=== PATIENT | male | born 1955 | race Two or more races ===

== ENCOUNTER 2020-05-16 03:16 | Emergency (ER) | payer OTHER ==
[~2020-05-16] VITALS: Ht 172.7 cm; Wt 74.4 kg
--- NOTE | 2020-05-16 05:13 | NUR ---
PT HAS REMAINED SLEEPING ON [employer], CONNECTED TO BP AND O2 MONITORS. CALL LIGHT IN REACH.
[2020-05-16 06:21] VITALS: BP 128/73
== END 2020-05-16 06:23 | disposition home or self-care (01) ==
LOC: ED 03:58
DX: U07.1 COVID-19 (principal); R06.00 Dyspnea, unspecified; R07.89 Other chest pain
CPT/HCPCS: 71045; 93005; 99283

== ENCOUNTER 2020-05-18 02:33 | Inpatient (IN) | payer SELFPAY ==
[~2020-05-18] VITALS: Ht 172.7 cm; Wt 73.4 kg
[2020-05-18 03:14] LABS: MEAN CORPUSCULAR HEMOGLOBIN 29.9 pg (27.5-34.5); MEAN CORPUSCULAR HGB CONC 33.7 g/dL (33.2-36.2); PLATELET COUNT 222 x10^3/uL (130-400); RED BLOOD COUNT 5.04 x10^6/uL (4.38-5.82); RED CELL DISTRIBUTION WIDTH 14.2 % (9.4-14.8)
[2020-05-18 03:19] LABS: ALANINE AMINOTRANSFERASE 23 U/L (12-78); ALBUMIN 2.9 g/dL (3.4-5.0); ANION GAP 6 mmol/L (5-15); CALCIUM 8.3 mg/dL (8.5-10.1); CHLORIDE 101 mmol/L (98-107)
[2020-05-18 03:23] LABS: ALKALINE PHOSPHATASE 63 U/L (45-117); BILIRUBIN,TOTAL 0.5 mg/dL (0.2-1.0); TOTAL PROTEIN 7.2 g/dL (6.4-8.2); TROPONIN I < 0.015 ng/mL (0.000-0.045)
[2020-05-18 03:33] LABS: BASOPHILS % (AUTO) 0 % (0-1); EOSINOPHILS % (AUTO) 0 % (1-7); LYMPHOCYTES % (AUTO) 9 % (22-44); MONOCYTES % (AUTO) 9 % (2-9); NEUTROPHILS % (AUTO) 81 % (42-75)
[2020-05-18 03:34] LABS: MD NO
--- NOTE | 2020-05-18 03:36 | NUR ---
Pt comes in with complaints of cough and increase SOB. Patient was recently seen here and was dx with MALIK 9 days ago. Patient states that the cough keeps him up at night and he is worried that his will get it. Patient placed on ECG/ O2 monitor, VSS. IV established and all labs drawn. Patient noted to be resting at this time and oxygen is 100% on RA. Call light within reach and will con't to montior
[2020-05-18] MEDS ORDERED: CEFTRIAXONE PMX 1GM/50ML 50 ML IVPB ONE (04:00)
[2020-05-18] MEDS ORDERED: AZITHROMYCIN 500 MG in SODIUM CHLORIDE 0.9% 250 ML IV ONE (04:00)
[2020-05-18] MEDS ORDERED: SODIUM CHLORIDE 0.9% 1,000 ML IV ONE (04:00)
[2020-05-18] MEDS ORDERED: CEFTRIAXONE PMX 1GM/50ML 50 ML ONE (04:06)
[2020-05-18] MEDS ORDERED: DOCUSATE 100 MG CAPSULE PO PRN (05:00)
[2020-05-18] MEDS ORDERED: ACETAMINOPHEN 325 MG TABLET PO PRN (05:00)
[2020-05-18] MEDS ORDERED: morphine SULFATE 10 MG/ML, 1ML IVPush PRN (05:00)
[2020-05-18] MEDS ORDERED: METHOCARBAMOL 500 MG TABLET PO PRN (05:00)
[2020-05-18] MEDS ORDERED: HYDROcodone/APAP 5/325 TABLET PO PRN (05:00)
[2020-05-18] MEDS ORDERED: ZOLPIDEM 5MG TABLET PO PRN (05:00)
[2020-05-18] MEDS ORDERED: ONDANSETRON 2MG/ML, 2ML IVPush PRN (05:00)
[2020-05-18] MEDS ORDERED: DEXAMETHASONE 1 MG TABLET PO SCH (05:00)
[2020-05-18] MEDS ORDERED: ENALAPRILAT 1.25 MG/ML, 2ML IVPush PRN (05:00)
[2020-05-18] MEDS ORDERED: ENOXAPARIN 40 MG/0.4 ML ONE (06:04)
[2020-05-18] MEDS ORDERED: BENZONATATE 100 MG CAPSULE ONE ×4 (06:04→21:26)
[2020-05-18] MEDS ORDERED: DEXAMETHASONE 4 MG TABLET ONE ×2 (06:05→08:28)
[2020-05-18] MEDS: ENOXAPARIN 40 MG/0.4 ML SQ SCH (06:10)
[2020-05-18] MEDS: BENZONATATE 100 MG CAPSULE PO SCH ×4 (06:11→21:00)
--- NOTE | 2020-05-18 06:23 | NUR ---
Customer Experience Associate noted that patient was placed on oxygen at some point. After speaking with the hospitalist he ask if we could wean patient down. The patient is currently on 1L NC at 97%. Patient offers no complaints of SOB or difficulty breathing at this time. Patient resting comfortably at this time. Call light within reach, side rails up.
--- NOTE | 2020-05-18 07:20 | NUR ---
RECEIVED REPORT FROM ELHAM OCAMPO RN. PT SLEEPING ON [facility]. CARTER. VSS. HOUSEKEEPING NOTIFIED OF NEED FOR HOSPITAL BED FOR PT.
--- NOTE | 2020-05-18 07:24 | NUR ---
YELLOW SLIP SENT TO PHARMACY FOR MORNING MEDS.
[2020-05-18] MEDS ORDERED: DEXAMETHASONE 4 MG TABLET PO SCH (07:30)
--- NOTE | 2020-05-18 08:24 | NUR ---
PT MOVED FROM [facility] TO [facility] BED. CARTER. PT CURRENTLY ON RA SATING 96%
[2020-05-18] MEDS ORDERED: FAMOTIDINE 20 MG TABLET ONE ×2 (08:28→21:25)
[2020-05-18] MEDS ORDERED: INSULIN SINGLE DOSE, ER ONE (08:29)
[2020-05-18] MEDS: FAMOTIDINE 20 MG TABLET PO SCH ×2 (08:38→21:00)
[2020-05-18] MEDS: INSULIN REGULAR 100 UNITS/ML, 3ML VIAL SQ-INSULIN SCH ×4 (08:38→21:30)
--- NOTE | 2020-05-18 08:38 | NUR ---
PT MEDICATED PER SEP. PROVIDED W/ BREAKFAST TRAY. NADN. MONITORS REMAIN IN PLACE.
--- NOTE | 2020-05-18 09:08 | NUR ---
PT RESTING IN BED. NADN. VSS.
[2020-05-18] MEDS: DEXAMETHASONE 4 MG TABLET PO SCH (09:32)
--- NOTE | 2020-05-18 11:00 | NUR ---
REPORT FROM TAPAN HAWKINS
--- NOTE | 2020-05-18 11:04 | NUR ---
REPORT GIVEN TO MILLER HERNANDEZ RN. ALL QUESTIONS ANSWERED.
[2020-05-18] MEDS ORDERED: INSULIN LISPRO SINGLE DOSE, ER SQ-INSULIN ONE (11:29)
--- NOTE | 2020-05-18 11:43 | NUR ---
PT FOUND WALKING IN HALLS, LOOKING FOR RESTROOM WITH MASK OFF AND IS COUGHING IN HALLS, EXPLAINED TO PT ISO PRECAUTIONS, AND HOW HE IS TO STAY IN RM. PT GIVEN URINAL.
--- NOTE | 2020-05-18 13:34 | NUR ---
BREAK RN:BEDSIDE REPORT RECEIVED FROM PRIMARY RN.
[2020-05-18] MEDS ORDERED: GUAIFENESIN/DM 200-20MG, 10ML UDC ONE (13:59)
[2020-05-18] MEDS: GUAIFENESIN/DM 200-20MG, 10ML UDC PO PRN (14:04)
--- NOTE | 2020-05-18 16:44 | NUR ---
PRE-MEAL FSBS 366, TREATED WITH 10 UNITS (VERIFIED BY MARY HAWKINS). DINNER AT BEDSIDE
--- NOTE | 2020-05-18 17:10 | NUR ---
PT PROVIDED WITH MEAL TRAY. NO OTHER NEEDS AT THIS TIME
--- NOTE | 2020-05-18 18:53 | NUR ---
REPORT FROM MARY HAWKINS. PT RESTING VSS. PT HAS NO NEEDS AT THIS TIME. CALL LIGHT IN REACH
[2020-05-18] MEDS ORDERED: GLIP10TA13 PO (20:11)
--- NOTE | 2020-05-18 20:12 | NUR ---
med rec complete. Report to floor. room not clean yet. Pt updated on POC. Pt has no needs at this time. call light in reach
--- NOTE | 2020-05-18 20:18 | NUR ---
PT HAD NO DIET ORDER IN ORDERS. 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
--- NOTE | 2020-05-18 21:42 | NUR ---
PT HR LOWERED TO 47 WHILE SLEEPING. ADMITTING MD AWARE NO CHANGE IN ORDERS
[2020-05-18 22:31] VITALS: BP 119/69
[2020-05-19 01:40] VITALS: BP 126/72
[2020-05-19] MEDS: AZITHROMYCIN 500 MG TABLET PO SCH ×2 (04:10→08:25)
[2020-05-19] MEDS: CEFTRIAXONE PMX 1GM/50ML 50 ML IV SCH (04:10)
[2020-05-19 06:05] LABS: BASOPHILS % (AUTO) 0 % (0-1); EOSINOPHILS % (AUTO) 0 % (1-7); LYMPHOCYTES % (AUTO) 11 % (22-44); MEAN CORPUSCULAR HEMOGLOBIN 29.6 pg (27.5-34.5); MEAN CORPUSCULAR HGB CONC 33.3 g/dL (33.2-36.2); MEAN PLATELET VOLUME 10.3 fL (7.4-10.4); MONOCYTES % (AUTO) 10 % (2-9); NEUTROPHILS % (AUTO) 79 % (42-75); PLATELET COUNT 242 x10^3/uL (130-400); RED BLOOD COUNT 4.79 x10^6/uL (4.38-5.82); RED CELL DISTRIBUTION WIDTH 13.9 % (9.4-14.8)
[2020-05-19 06:19] LABS: CHLORIDE 105 mmol/L (98-107)
[2020-05-19 06:29] LABS: ANION GAP 10 mmol/L (5-15); CALCIUM 8.4 mg/dL (8.5-10.1); CREATININE 0.88 mg/dL (0.7-1.3)
[2020-05-19 06:45] VITALS: BP 122/70
[2020-05-19] MEDS: INSULIN REGULAR 100 UNITS/ML, 3ML VIAL SQ-INSULIN SCH ×4 (07:00→20:42)
[2020-05-19 07:47] LABS: MD SCAN
[2020-05-19] MEDS: BENZONATATE 100 MG CAPSULE PO SCH ×3 (08:25→20:41)
[2020-05-19] MEDS: FAMOTIDINE 20 MG TABLET PO SCH ×2 (08:25→20:42)
[2020-05-19] MEDS: DEXAMETHASONE 4 MG TABLET PO SCH (08:25)
[2020-05-19] MEDS: ENOXAPARIN 40 MG/0.4 ML SQ SCH (08:27)
[2020-05-19 13:28] VITALS: BP 116/68
[2020-05-19] MEDS: ASCORBIC ACID 500 MG TABLET PO SCH (16:59)
[2020-05-19 20:09] VITALS: BP 135/73
[2020-05-20 02:34] VITALS: BP 135/80
[2020-05-20] MEDS: CEFTRIAXONE PMX 1GM/50ML 50 ML IV SCH (04:05)
[2020-05-20] MEDS: GUAIFENESIN/DM 200-20MG, 10ML UDC PO PRN (04:06)
[2020-05-20 05:35] LABS: HCT (SEDRATE) 43.9 % (39.2-51.8)
[2020-05-20 05:50] LABS: ALBUMIN 2.3 g/dL (3.4-5.0); ANION GAP 6 mmol/L (5-15); CALCIUM 8.1 mg/dL (8.5-10.1); CHLORIDE 109 mmol/L (98-107)
[2020-05-20 05:54] LABS: D-DIMER (DIC) 0.72 ug/mlFEU (0.00-0.52); PROTIME 11.1 Seconds (9.6-11.5)
[2020-05-20 05:59] LABS: ALANINE AMINOTRANSFERASE 28 U/L (12-78); ALKALINE PHOSPHATASE 58 U/L (45-117); BILIRUBIN,TOTAL 0.4 mg/dL (0.2-1.0); C-REACTIVE PROTEIN, QUANT 2.46 mg/dL (0.02-0.49); CREATININE 0.83 mg/dL (0.7-1.3); TOTAL PROTEIN 6.1 g/dL (6.4-8.2)
[2020-05-20 06:46] VITALS: BP 134/79
[2020-05-20] MEDS: ASCORBIC ACID 500 MG TABLET PO SCH ×2 (08:18→17:01)
[2020-05-20] MEDS: BENZONATATE 100 MG CAPSULE PO SCH ×3 (08:18→20:26)
[2020-05-20] MEDS: FAMOTIDINE 20 MG TABLET PO SCH ×2 (08:19→20:26)
[2020-05-20] MEDS: AZITHROMYCIN 500 MG TABLET PO SCH (08:19)
[2020-05-20] MEDS: DEXAMETHASONE 4 MG TABLET PO SCH (08:19)
[2020-05-20] MEDS: ENOXAPARIN 40 MG/0.4 ML SQ SCH (08:19)
[2020-05-20] MEDS: ZINC SULFATE 220 MG CAPSULE PO SCH (08:20)
[2020-05-20] MEDS ORDERED: POTASSIUM CHLORIDE 20 MEQ TAB.ER.PRT PO ONE (08:30)
[2020-05-20] MEDS: INSULIN REGULAR 100 UNITS/ML, 3ML VIAL SQ-INSULIN SCH ×2 (08:32→12:18)
[2020-05-20 13:39] VITALS: BP 131/81
[2020-05-20] MEDS: INSULIN LISPRO 100 UNITS/ML, PEN SQ-INSULIN SCH ×2 (17:01→20:32)
[2020-05-20 19:41] VITALS: BP 130/73
[2020-05-21 01:31] VITALS: BP 136/79
[2020-05-21] MEDS: CEFTRIAXONE PMX 1GM/50ML 50 ML IV SCH (04:06)
[2020-05-21 06:23] VITALS: BP 150/80
[2020-05-21] MEDS: ASCORBIC ACID 500 MG TABLET PO SCH (07:57)
[2020-05-21] MEDS: INSULIN LISPRO 100 UNITS/ML, PEN SQ-INSULIN SCH ×2 (07:57→12:14)
[2020-05-21] MEDS: ENOXAPARIN 40 MG/0.4 ML SQ SCH (07:57)
[2020-05-21] MEDS: DEXAMETHASONE 4 MG TABLET PO SCH (07:58)
[2020-05-21] MEDS: BENZONATATE 100 MG CAPSULE PO SCH (07:58)
[2020-05-21] MEDS: FAMOTIDINE 20 MG TABLET PO SCH (07:58)
[2020-05-21] MEDS: AZITHROMYCIN 500 MG TABLET PO SCH (07:59)
[2020-05-21] MEDS: ZINC SULFATE 220 MG CAPSULE PO SCH (07:59)
[2020-05-21 12:00] VITALS: BP 127/75
[2020-05-21] MEDS ORDERED: CEFD300C37 PO (13:19)
[2020-05-21] MEDS ORDERED: DEXA4TAB PO (13:19)
[2020-05-21] MEDS ORDERED: ZINC220C7 PO (13:19)
[2020-05-21] MEDS ORDERED: ASCO500T9 PO (13:19)
[2020-05-21] MEDS ORDERED: AZIT500T PO (13:19)
== END 2020-05-21 15:07 | disposition home or self-care (01) | DRG 177 ==
LOC: ED 03:07 → EDIP 04:09 → 4EST 22:20
PROVIDERS: ADMIT Internal Medicine; ATTEND Internal Medicine
DX: U07.1 COVID-19 (principal); J12.89 Other viral pneumonia; J96.01 Acute respiratory failure with hypoxia; E87.1 Hypo-osmolality and hyponatremia; E11.65 Type 2 diabetes mellitus with hyperglycemia; E78.5 Hyperlipidemia, unspecified; E88.09 Other disorders of plasma-protein metabolism, not elsewhere classified; J06.9 Acute upper respiratory infection, unspecified
CPT/HCPCS: 36415; 71045; 80048; 80053; 82728; 82962; 83036; 83615; 83735; 83880; 84145; 84484; 85025; 85049; 85379; 85384; 85610; 85651; 85730; 86140; 87040; 93005; 96374; 96375; 99285; G0378; J0456; J0696; J1650; J1815; J7030; J7050